=== PATIENT | female | born 1995 | race Caucasian/White ===

== ENCOUNTER 2023-01-21 22:19 | Emergency (ER) | payer OTHER ==
[~2023-01-21] VITALS: Ht 157.5 cm; Wt 78.0 kg
[2023-01-21] MEDS ORDERED: DESVENLAFAXINE100 M3 (22:39)
[2023-01-21] MEDS ORDERED: AMOX TR-K CLV1 EAC1 PO (22:41)
[2023-01-21 23:00] VITALS: BP 122/69
== END 2023-01-21 23:00 | disposition home or self-care (01) ==
LOC: ED 22:19
DX: N61.0 Mastitis without abscess (principal); F41.9 Anxiety disorder, unspecified; Z79.899 Other long term (current) drug therapy
CPT/HCPCS: 99282